=== PATIENT | female | born 1990 | race Asian ===

== ENCOUNTER 2018-11-09 11:26 | Outpatient (CLI) | payer BC ==
--- NOTE | 2018-11-09 11:47 | RAD ---
F3 views right foot. HISTORY: Right foot pain and swelling. AP, lateral and oblique views right foot is obtained. No evidence of right foot fractures, subluxations or bony lesion seen. IMPRESSION: Normal 3 views right foot.
== END 2018-11-09 11:27 | disposition home or self-care (01) ==
LOC: SCSRAD 11:26
PROVIDERS: ATTEND Family Medicine
DX: M79.671 Pain in right foot (principal)

== ENCOUNTER 2019-08-29 07:54 | Outpatient (CLI) | payer BC ==
--- NOTE | 2019-08-29 08:20 | ULT ---
US Gallbladder RUQ: 08/29/2019 12:00 AM CLINICAL HISTORY: Right upper quadrant abdominal pain. STUDY: Limited right upper quadrant ultrasound of abdomen. COMPARISON: None. FINDINGS: Liver: Size: Normal. Echogenicity: Normal. Contour: Smooth. Mass: None. Bile ducts: No intrahepatic or extrahepatic biliary dilatation. Common bile duct measures 4 mm. Gallbladder: Normal. Pancreas: Head, body, and tail appear normal. Right kidney: No pelvicalyceal dilatation. Right kidney measuring 11.3 cm in length. There is an anec hoic cystlike lesion in the hilar region of the right kidney which may represent a parapelvic cyst. IMPRESSION: Right parapelvic renal cyst
== END 2019-08-29 07:55 | disposition home or self-care (01) ==
LOC: BICULT 07:54
PROVIDERS: ATTEND Family Medicine
DX: R10.11 Right upper quadrant pain (principal); N28.1 Cyst of kidney, acquired
CPT/HCPCS: 76705